=== PATIENT | female | born 1955 | race Caucasian/White ===

== ENCOUNTER → 2019-01-03 | Day surgery (SDC) | payer BC ==
[~2019-01-03] MED LIST: LIDOCAINE HCL 1% 20ML VIAL (Pyxis) INJ ONE; SODIUM BICARBONATE 4% (2.4MEQ) 5ML VIAL IV ONE
== END | disposition home or self-care (01) ==
LOC: ANGIO 13:05
PROVIDERS: ATTEND Radiology Diagnostic Radiology
DX: C25.7 Malignant neoplasm of other parts of pancreas (principal)
CPT/HCPCS: 36573; C1725; J3490; 36569